=== PATIENT | male | born 1965 | race Caucasian/White ===

== ENCOUNTER 2018-09-25 07:35 | Day surgery (SDC) | payer OTHER, SELFPAY ==
[2018-09-25] VITALS (7 sets, daily range): BP systolic 95–121; BP diastolic 64–76; PULSE 62–81; RESP 10–20; TEMP 36.1–37.1; O2SAT 94–98; BMI 21.5
[2018-09-25] MEDS: SODIUM CHLORIDE 0.9% 1,000 ML 200 ML IV (08:10)
--- NOTE | 2018-09-25 09:21 | PM.HP.1 ---
History of Present Illness Date Patient Seen: 09/25/18 Time Patient Seen: 09:21 Chief complaint: [id number] SCREENING COLONOSCOPY Narrative: 53-year-old male who presents for colorectal screening. He has never had any previous examination for such. On further history today he denies any recent gastrointestinal symptoms. Denies any nausea, vomiting, abdominal pain, unexplained weight loss, change in bowel habits, diarrhea, constipation, melena, hematochezia, or bright red blood per rectum. Patient History Medical History Anxiety (Acute) Chronic back pain (Acute) Depression (Acute) Osteoarthritis (Acute) Sinusitis (Acute) Family & Social History Family History: Reviewed 09/25/18 by Juventino Garland MD Social History: household members none Meds Home Medications Medication Instructions Recorded Confirmed Type cetirizine 10 mg PO DAILY 09/25/18 09/25/18 History lidocaine [Lidoderm] 1 applic/day TRANSDERMAL 1-2XD 09/25/18 09/25/18 History salsalate 09/25/18 History Allergies Allergy/AdvReac Type Severity Reaction Status Date / Time Penicillins Allergy Mild Rash Verified 09/25/18 07:58 Review of Systems Review of Systems All systems reviewed & are unremarkable except as noted in HPI and below Exam Vital Signs (past 8 hours): - 09/25/18 08:05 Temperature 97.0 F L Pulse Rate 67 Respiratory Rate 20 Blood Pressure 115/64 Pulse Oximetry 98 Oxygen Delivery Method Room Air Narrative Exam Narrative: Well-nourished well-developed thin male in no acute distress Alert oriented x3 Abdomen soft, nondistended, nontender Regular rate rhythm Extremities show no clubbing or cyanosis Objective Labs Labs: No recent laboratory or radiographic studies for review Assessment & Plan Plan: Assessment/Plan Narrative: 53-year-old male who presents for colorectal screening by age criteria. Colonoscopy is recommended. Technical details of the procedure reviewed. Risks, benefits, alternatives were explained. Risks including but not limited to sedation, aspiration, bleeding, pain, missed lesion, incomplete examination, need for further radiographic studies, colonic perforation, need for major abdominal surgery, and all attendant risks of major surgery were explained at length. All questions were answered to his satisfaction, and he voiced understanding. Consent was placed on the chart. We will proceed as above.
--- NOTE | 2018-09-25 09:29 | P.HP_ITS ---
History of Present Illness Date Patient Seen: 09/25/18 Time Patient Seen: 09:21 Chief complaint: [id number] SCREENING COLONOSCOPY Narrative: 53-year-old male who presents for colorectal screening. He has never had any previous examination for such. On further history today he denies any recent gastrointestinal symptoms. Denies any nausea, vomiting, abdominal pain, unexplained weight loss, change in bowel habits, diarrhea, constipation, melena, hematochezia, or bright red blood per rectum. Patient History Medical History Anxiety (Acute) Chronic back pain (Acute) Depression (Acute) Osteoarthritis (Acute) Sinusitis (Acute) Family & Social History Family History: Reviewed 09/25/18 by Juventino Garland MD Social History: household members none Meds Home Medications Medication Instructions Recorded Confirmed Type cetirizine 10 mg PO DAILY 09/25/18 09/25/18 History lidocaine [Lidoderm] 1 applic/day TRANSDERMAL 1-2XD 09/25/18 09/25/18 History salsalate 09/25/18 History Allergies Allergy/AdvReac Type Severity Reaction Status Date / Time Penicillins Allergy Mild Rash Verified 09/25/18 07:58 Review of Systems Review of Systems All systems reviewed & are unremarkable except as noted in HPI and below Exam Vital Signs (past 8 hours): - 09/25/18 08:05 Temperature 97.0 F L Pulse Rate 67 Respiratory Rate 20 Blood Pressure 115/64 Pulse Oximetry 98 Oxygen Delivery Method Room Air Narrative Exam Narrative: Well-nourished well-developed thin male in no acute distress Alert oriented x3 Abdomen soft, nondistended, nontender Regular rate rhythm Extremities show no clubbing or cyanosis Objective Labs Labs: No recent laboratory or radiographic studies for review Assessment & Plan Plan: Assessment/Plan Narrative: 53-year-old male who presents for colorectal screening by age criteria. Colonoscopy is recommended. Technical details of the procedure reviewed. Risks , benefits, alternatives were explained. Risks including but not limited to sedation, aspiration, bleeding, pain, missed lesion, incomplete examination, need for further radiographic studies, colonic perforation, need for major abdominal surgery, and all attendant risks of major surgery were explained at length. All questions were answered to his satisfaction, and he voiced understanding. Consent was placed on the chart. We will proceed as above.
--- NOTE | 2018-09-25 09:29 | PM.PREOP ---
Pre-operative Note Interval Note History & Physical reviewed/Exam performed by Physician: Yes Changes to H&P: No H&P completed within 30 days and has changed as indicated here:: Patient seen and examined today. History and physical examination placed on the chart. Obviously no changes within the last 10 min. Proceed with colonoscopy today as planned. ASA Class (for procedural sedation): I
[2018-09-25] MEDS: fentaNYL 250 MCG/5 ML INJ IV (09:52)
[2018-09-25] MEDS: MIDAZOLAM 5 MG/5 ML VIAL IV (09:52)
--- NOTE | 2018-09-25 10:02 | PM.OP.ENDO ---
Operative Date/Time/Diagnoses Date of procedure: 09/25/18 Time of procedure: 10:02 Pre-op diagnosis: Colorectal screening Post-op diagnosis: other (Redundant tortuous colon but otherwise normal study) Procedure & Clinicians Study performed: 1. Sedation per surgeon 2. Colonoscopy Same procedure as scheduled: Yes Indications: 53-year-old male who presents for colorectal screening. He has never had any type of previous examination for such. Colonoscopy is currently recommended. Surgeon: Juventino Garland Procedure Notes SCOAP/Timeout: Yes Procedure in detail: After obtaining informed consent, the patient was brought to the GI suite and placed in the left lateral decubitus position on the examination table. After placement of appropriate monitors, the patient was given incremental doses of Versed and Fentanyl until an appropriate level of sedation was achieved. A time out was held per SCOAP protocol. A digital rectal examination was performed and did not reveal any masses or obstructing lesions. The colonoscope was gently passed into the patient's anus and the entire colon navigated to the level of the cecum with minimal difficulty. Once in the cecum, the scope was withdrawn being sure to go before and beyond all mucosal folds and prominences and get an excellent examination. The findings are noted above. At the level of the rectal vault, the scope was retroflexed and the internal anal canal was examined. The scope was straightened and air aspirated from the colon. The instrument was removed from the patient's body and the procedure was concluded. The patient was allowed to awaken from sedation without difficulty and taken to the post-anesthesia care unit in good condition. Scope withdrawal time: 8:07 min Sedation minutes: 25 Findings: other findings (Normal colon and rectum) Specimen(s): none sent Complications: none Recommendations: Colonscopy in 10 years Plan for aftercare: 1. Discharge home Follow up: as needed Disposition: PACU
== END 2018-09-25 10:51 | disposition home or self-care (01) ==
PROVIDERS: PCP Family Medicine; Visit Provider Surgery
PROC: 0DJD8ZZ Inspection of Lower Intestinal Tract, Via Natural or Artificial Opening Endoscopic (ICD-10-PCS; CPT 45378; principal; 2018-09-25 08:45)
DX: Z12.11 Encounter for screening for malignant neoplasm of colon (principal); F41.9 Anxiety disorder, unspecified; F33.41 Major depressive disorder, recurrent, in partial remission
CPT/HCPCS: 45378; 99152; 99153; J2250; J3010